=== PATIENT | male | born 1960 | race Caucasian/White ===

== ENCOUNTER 2017-03-30 08:58 | Emergency (ER) | payer BC, OTHER ==
[~2017-03-30] VITALS: Ht 175.3 cm; Wt 92.1 kg
[~2017-03-30 08:58] MED LIST: BACT800T5 PO; DOXY100T PO; EZET10 PO; LORTA5 PO
[2017-03-30 09:01] VITALS: BP 153/95; PULSE 68; RESP 18; TEMP 97.5; O2SAT 98
[2017-03-30] MEDS ORDERED: EZET10 PO (09:14)
[2017-03-30] MEDS ORDERED: ALEV220T14 PO (09:14)
--- NOTE | 2017-03-30 09:17 | PD ---
HPI Chief Complaint: Musculoskeletal Complaint Time Seen by Provider: 09:14 Travel History International Travel<30 days: No Contact w/Intl Traveler<30days: No Traveled to known affect area: No History of Present Illness HPI 57-year-old male presents to emergency department status post fall 5 days ago from a ladder approximately 10 feet. He now has a stabbing pain in the right posterior upper back, which she feels is probably a rib fracture which she has had in the past. He denies shortness of breath, numbness, tingling, or weakness in the right arm. He denies loss of consciousness at that time. He's been taking Aleve with mild improvement but is concerned it is not improving. He has no other injuries. He has no known drug allergies. PFSH Past Medical History Cardiovascular Problems: No High Cholesterol: Yes Diabetes: No Endocrine: No Genitourinary: No Hepatitis: No Hiatal Hernia: No Immune Disorder: No Medical other: Yes Musculoskeletal: Yes (ARTHRITIS KNEES AND ANKLES) Neurologic: No Psychiatric: No Reproductive: No Respiratory: No Thyroid Disease: No Tetanus Vaccination: < 5 Years Past Surgical History Abdominal Surgery: No AICD: No Body Medical Devices: 1 METAL STAPLE LEFT SHOULDER Cardiac Surgery: No Ear Surgery: No Endocrine Surgery: No Eye Surgery: No Genitourinary Surgery: No Joint Replacement: No Oral Surgery: No Pacemaker: No Thoracic Surgery: No Other Surgery: Yes (KNEE SURGERY X 2 THIS YEAR, 2014) Social History Alcohol Use: Yes (OCCASIONAL ONLY) Tobacco Use: No Substance Use: No Allergies-Medications (Allergen,Severity, Reaction): Coded Allergies: No Known Allergies (Verified Adverse Reaction, Unknown, 03/30/17) Reported Meds & Prescriptions Reported Meds & Active Scripts Active Hydrocodone-Acetaminophen 5-325 mg Tab 1 Tab PO Q6H PRN Reported Aleve Arthritis (Naproxen Sodium) 220 Mg Tab 220 Mg PO BID Zetia (Ezetimibe) 10 Mg Tab 10 Mg PO DAILY Review of Systems Except as stated in HPI: all other systems reviewed are Neg General / Constitutional: No: Fever Eyes: No: Visual changes HENT: No: Headaches Cardiovascular: No: Chest Pain or Discomfort Respiratory: No: Shortness of Breath Gastrointestinal: No: Abdominal Pain Genitourinary: No: Dysuria Musculoskeletal: Positive: Pain (see history present illness) Skin: No Rash Neurologic: No: Weakness Psychiatric: No: Depression Endocrine: No: Polydipsia Hematologic/Lymphatic: No: Easy Bruising Physical Exam Narrative GENERAL: Patient appears in mild distress. SKIN: Warm and dry. Normal color. Normal turgor. No signs of trauma. HEAD: Atraumatic. Normocephalic. EYES: Pupils equal and round. No scleral icterus. No injection or drainage. ENT: No nasal bleeding or discharge. Mucous membranes pink and moist. No dental injury. Pharynx is clear. Airway is patent. NECK: Trachea midline. No bony tenderness or step-off. Range of motion is full and supple. CARDIOVASCULAR: Regular rate and rhythm. RESPIRATORY: No accessory muscle use. Clear to auscultation. Breath sounds equal bilaterally. Patient has point tenderness in the right upper medial thoracic region without obvious deformity, crepitus, or subcutaneous emphysema. GASTROINTESTINAL: Abdomen soft, non-tender, nondistended. Hepatic and splenic margins not palpable. MUSCULOSKELETAL: Extremities without clubbing, cyanosis, or edema. No obvious deformities. Range of motion is full, food services coordinator strength is normal bilaterally. NEUROLOGICAL: Awake and alert. No obvious cranial nerve deficits. Motor grossly within normal limits. Five out of 5 muscle strength in the arms and legs. Normal speech. PSYCHIATRIC: Appropriate mood and affect; insight and judgment normal. Data Data Last Documented VS Vital Signs Date Time Temp Pulse Resp B/P (MAP) Pulse Ox O2 Delivery O2 Flow Rate FiO2 03/30/17 09:10 18 03/30/17 09:01 97.5 68 153/95 (114) 98 Orders Orders Ribs, Uni (W/Exp Cxr-Min 3vw) (03/30/17 09:16) Ketorolac Inj (Toradol Inj) (03/30/17 09:30) Ed Discharge Order (03/30/17 10:13) [facility] Medical Decision Making Medical Screen Exam Complete: Yes Emergency Medical Condition: Yes Differential Diagnosis Fall from ladder. Rib fracture. Rib pain. Rib strain. Contusion. Narrative Course Rib x-rays are ordered on the right side. X-rays show proximal rib fractures the fourth rib on the right. No pneumothorax is noted. Patient given Toradol 60 mg IM with improvement. Patient is sent home with Lortab 5/325 one tablet every 6 hours when necessary pain #20. Patient follow with primary care doctor as needed. Diagnosis Primary Impression: Right rib fracture Qualified Codes: S22.31XA - Fracture of one rib, right side, initial encounter for closed fracture Referrals: Primary Care Physician Patient Instructions: General Instructions, Rib Fracture (ED) Additional Instructions: X-rays show proximal rib fractures the fourth rib on the right. No pneumothorax is noted. Patient given Toradol 60 mg IM with improvement. Patient is sent home with Lortab 5/325 one tablet every 6 hours when necessary pain #20. Patient follow with primary care doctor as needed. Med/Other Pt SpecificInfo: Prescription(s) given Scripts Hydrocodone-Acetaminophen (Hydrocodone-Acetaminophen) 5-325 mg Tab 1 TAB PO Q6H Y for PAIN, #20 TAB 0 Refills Prov: Lorna Hernandez MD 03/30/17 Disposition: 01 DISCHARGE HOME Condition: Stable Caleb Sheth Mar 30, 2017 09:17
[2017-03-30] MEDS ORDERED: KETOROLAC TROMETHAMINE 60 MG/2 ML (IM) VIAL IM ONE (09:30)
[2017-03-30] MEDS ORDERED: HYDR-3516 PO (10:13)
--- NOTE | 2017-03-30 10:27 | RADRPT ---
EXAM DATE/TIME: 03/30/2017 09:20 [facility] COMPARISON: No previous studies available for comparison. INDICATIONS : Right rib pain post fall from ladder 5 days ago. MEDICAL HISTORY : Hypercholesterolemia. Arthritis. SURGICAL HISTORY : Left shoulder. Right knee. ENCOUNTER: Initial ACUITY: 4 - 6 days PAIN SCORE: 7/10 LOCATION: Right ribs. FINDINGS: Expiratory view of the chest demonstrates no pneumothorax. 2 views of the right ribs demonstrate an a bnormal appearance involving the right lateral fifth and sixth ribs. This area is not well seen and c ould represent acute versus chronic rib fracture. No other rib abnormality is identified. CONCLUSION: Acute versus chronic rib fracture involving the right lateral fifth and sixth ribs. No pneumothorax i s identified. Jorge Martin MD on March 30, 2017 at 10:22 Board Certified Radiologist. This report was verified electronically.
== END 2017-03-30 10:22 | disposition home or self-care (01) ==
LOC: PHEFT 08:58
DX: S22.31XA Fracture of one rib, right side, initial encounter for closed fracture (principal); E78.00 Pure hypercholesterolemia, unspecified; M17.0 Bilateral primary osteoarthritis of knee; W11.XXXA Fall on and from ladder, initial encounter
CPT/HCPCS: 71101; 96372; 99284; J1885